=== PATIENT | male | born 1970 | race Two or more races ===

== ENCOUNTER 2020-01-24 20:31 | Emergency (ER) | payer SELFPAY ==
[~2020-01-24] VITALS: Ht 167.6 cm; Wt 59.1 kg
[~2020-01-24 20:31] MED LIST: OMEG-14 PO
--- NOTE | 2020-01-24 20:54 | NUR ---
PT AMBULATED BACK TO ROOM, CHANGED INTO GOWN, VSS, NAD, RESP WNL, SKIN COLOR WNL WARM AND DRY, CALL LIGHT ON LAP, AT BS. WCTM. WAIT FOR MD PERALTA.
[2020-01-24] MEDS ORDERED: FAMOTIDINE 20 MG TABLET ONE (21:11)
[2020-01-24] MEDS ORDERED: ONDANSETRON ODT 4 MG ONE (21:12)
[2020-01-24] MEDS ORDERED: MAALOX/HYOSCYAMINE/LIDOCAINE 45 ML BTL ONE (21:12)
--- NOTE | 2020-01-24 21:15 | NUR ---
PT MEDICATED PER NOV, GIVEN URINAL TO COLLECT URINE SAMPLE, PT NAD, RESP WNL, SKIN COLOR WNL WARM AND DRY. WCTM. WAITING FOR TEST RESULTS
--- NOTE | 2020-01-24 21:26 | NUR ---
ua and labs sent to lab, pt resting in [facility], NAD, RESP WNL, skin color WNL warm and dry, VSS, WCTM. waiting for test results.
[2020-01-24] MEDS ORDERED: MAALOX/HYOSCYAMINE/LIDOCAINE 45 ML BTL PO ONE (21:30)
[2020-01-24] MEDS ORDERED: FAMOTIDINE 20 MG TABLET PO ONE (21:30)
[2020-01-24] MEDS ORDERED: ONDANSETRON ODT 4 MG PO ONE (21:30)
[2020-01-24 21:39] LABS: BASOPHILS # (AUTO) 0.03 x10^3/uL (0-0.1); BASOPHILS % (AUTO) 1 % (0-1); EOSINOPHILS # (AUTO) 0.16 x10^3/uL (0-0.4); EOSINOPHILS % (AUTO) 4 % (1-7); LYMPHOCYTES # (AUTO) 1.34 x10^3/uL (1-3.4); LYMPHOCYTES % (AUTO) 31 % (22-44); MD NO; MEAN CORPUSCULAR HEMOGLOBIN 30.4 pg (27.5-34.5); MEAN CORPUSCULAR HGB CONC 33.5 g/dL (33.2-36.2); MEAN CORPUSCULAR VOLUME 90.6 fL (81-97); MEAN PLATELET VOLUME 8.7 fL (7.4-10.4); MONOCYTES # (AUTO) 0.48 x10^3/uL (0.2-0.8); MONOCYTES % (AUTO) 11 % (2-9); NEUTROPHILS % (AUTO) 54 % (42-75); PLATELET COUNT 164 x10^3/uL (130-400); RED BLOOD COUNT 4.58 x10^6/uL (4.38-5.82); RED CELL DISTRIBUTION WIDTH 13.3 % (9.4-14.8)
[2020-01-24 21:44] LABS: ALANINE AMINOTRANSFERASE 25 U/L (12-78); ALBUMIN 3.7 g/dL (3.4-5.0); ANION GAP 4 mmol/L (5-15); CALCIUM 8.8 mg/dL (8.5-10.1); CHLORIDE 108 mmol/L (98-107); CREATININE 0.86 mg/dL (0.7-1.3)
[2020-01-24 21:46] LABS: ALKALINE PHOSPHATASE 57 U/L (45-117); BILIRUBIN,TOTAL 0.3 mg/dL (0.2-1.0); TOTAL PROTEIN 6.7 g/dL (6.4-8.2)
[2020-01-24 21:55] LABS: MICROSCOPIC NOT IND
[2020-01-24 22:20] VITALS: BP 121/82
--- NOTE | 2020-01-24 22:21 | NUR ---
Patient/Caregiver given discharge instructions and they have confirmed that they understand the instructions. Patient ambulatory with steady gait. NAD, RESP WNL, SKIN COLOR WNL WARM AND DRY, MAEx4.
== END 2020-01-24 22:38 | disposition home or self-care (01) ==
LOC: ED 22:10
DX: R10.13 Epigastric pain (principal); R11.2 Nausea with vomiting, unspecified; R94.31 Abnormal electrocardiogram [ECG] [EKG]
CPT/HCPCS: 36415; 80053; 81003; 83690; 85025; 93005; 99284; Q0162

== ENCOUNTER 2020-04-18 09:38 | Emergency (ER) | payer SELFPAY ==
[~2020-04-18] VITALS: Ht 165.1 cm; Wt 57.7 kg
[2020-04-18 09:40] VITALS: BP 104/68
--- NOTE | 2020-04-18 10:26 | NUR ---
DENTAL PAIN, TINGLING IN HEAD. LAB AT BEDSIDE AFTER MD EXAM
[2020-04-18 10:37] LABS: BASOPHILS # (AUTO) 0.02 x10^3/uL (0-0.1); BASOPHILS % (AUTO) 0 % (0-1); EOSINOPHILS # (AUTO) 0.02 x10^3/uL (0-0.4); EOSINOPHILS % (AUTO) 0 % (1-7); LYMPHOCYTES # (AUTO) 0.62 x10^3/uL (1-3.4); LYMPHOCYTES % (AUTO) 8 % (22-44); MD NO; MEAN CORPUSCULAR HEMOGLOBIN 29.5 pg (27.5-34.5); MEAN CORPUSCULAR HGB CONC 32.6 g/dL (33.2-36.2); MEAN CORPUSCULAR VOLUME 90.5 fL (81-97); MEAN PLATELET VOLUME 8.4 fL (7.4-10.4); MONOCYTES # (AUTO) 0.32 x10^3/uL (0.2-0.8); MONOCYTES % (AUTO) 4 % (2-9); NEUTROPHILS # (AUTO) 7.14 x10^3/uL (1.8-6.8); NEUTROPHILS % (AUTO) 88 % (42-75); PLATELET COUNT 185 x10^3/uL (130-400); RED BLOOD COUNT 5.08 x10^6/uL (4.38-5.82)
[2020-04-18 10:48] LABS: ALANINE AMINOTRANSFERASE 22 U/L (12-78); ALBUMIN 4.1 g/dL (3.4-5.0); ANION GAP 3 mmol/L (5-15); CALCIUM 9.4 mg/dL (8.5-10.1); CHLORIDE 108 mmol/L (98-107); CREATININE 0.88 mg/dL (0.7-1.3)
[2020-04-18 10:51] LABS: ALKALINE PHOSPHATASE 64 U/L (45-117); BILIRUBIN,TOTAL 0.5 mg/dL (0.2-1.0); TOTAL PROTEIN 6.9 g/dL (6.4-8.2)
== END 2020-04-18 12:07 | disposition home or self-care (01) ==
LOC: ED 10:06
DX: K08.89 Other specified disorders of teeth and supporting structures (principal); R51 Headache; I10 Essential (primary) hypertension
CPT/HCPCS: 36415; 80053; 84145; 85025; 99283

== ENCOUNTER 2020-05-04 00:43 | Emergency (ER) | payer SELFPAY ==
[~2020-05-04] VITALS: Ht 170.2 cm; Wt 57.2 kg
[2020-05-04 00:45] VITALS: BP 130/82
--- NOTE | 2020-05-04 02:24 | NUR ---
PATIENT SIGNED AMA.
== END 2020-05-04 02:26 | disposition left against medical advice (07) ==
LOC: ED 02:15
DX: R11.0 Nausea (principal); R51 Headache; Z53.21 Procedure and treatment not carried out due to patient leaving prior to being seen by health care provider